=== PATIENT | female | born 1950 | race Caucasian/White ===

== ENCOUNTER 2017-07-30 13:56 | Emergency (ER) | payer BC ==
[~2017-07-30] VITALS: Ht 165.1 cm; Wt 87.2 kg
[2017-07-30 13:58] VITALS: BP 161/85; PULSE 100; RESP 24; TEMP 98.1; O2SAT 95
[2017-07-30] MEDS ORDERED: VENTAER INH (14:10)
[2017-07-30] MEDS ORDERED: ARMO60TA PO (14:10)
[2017-07-30] MEDS ORDERED: SYMB80AE INH (14:10)
[2017-07-30] MEDS ORDERED: methylPREDNISolone SOD SUCC 125 MG/2 ML VIAL IV PUSH ONE (14:15)
[2017-07-30] MEDS ORDERED: SODIUM CHLORIDE 0.9% FLUSH 10 ML FLUSH IVF PRN (14:15)
[2017-07-30] MEDS: RESP: ALBUTEROL 2.5 MG/IPRATROPIUM 0.5 MG NEB (SCH) INH (14:22)
--- NOTE | 2017-07-30 14:23 | PD ---
HPI Chief Complaint: Respiratory Symptoms Time Seen by Provider: 14:10 Travel History International Travel<30 days: No Contact w/Intl Traveler<30days: No Traveled to known affect area: No History of Present Illness HPI 66-year-old female, with history of asthma, presents to the emergency department with complaint of cough, chest tightness, and shortness of breath since Wednesday, with worsening. Reports wheezing. Has tried using her albuterol inhaler with some relief, but symptoms have worsened and her albuterol inhaler is not working. Denies nasal congestion, sore throat, ear pain, fevers. Reports vomiting only secondary to cough. Denies chest pain. Reports mid back pain. Is down here on vacation and staying in a hotel. No known triggers. Symptoms are aggravated when lying down. No known relieving factors. Symptoms are moderate in severity. Rates back pain 02/21. Describes it as an ache. Primary care provider is in [place]. Allergies to benzethonium chloride, benzocaine. History of asthma and hypothyroidism. Has no other medical complaints. No other modifying factors or associated signs and symptoms. PFSH Past Medical History Asthma: Yes Thyroid Disease: Yes ?: Not Past Surgical History Appendectomy: Yes Hysterectomy: Yes Tonsillectomy: Yes Social History Alcohol Use: No Tobacco Use: No Substance Use: No Allergies-Medications (Allergen,Severity, Reaction): Coded Allergies: benzethonium chloride (Verified Allergy, Severe, FACIAL SWELLING, 07/30/17) benzocaine (Verified Allergy, Severe, FACIAL SWELLING, 07/30/17) Reported Meds & Prescriptions Reported Meds & Active Scripts Active Reported Ventolin Hfa 18 GM Inh (Albuterol Sulfate) 90 Mcg/Act Aer 1 Puff INH Q4H PRN Symbicort Inh (Budesonide/Formoterol Fumarate) 80-4.5 Mcg/Act Aero 1 Puff INH Q12HR [place] Thyroid (Thyroid) 60 Mg Tab 60 Mg PO DAILY Review of Systems Except as stated in HPI: all other systems reviewed are Neg Physical Exam Narrative GENERAL: Well-nourished, well-developed female patient, in no acute distress; afebrile, nontoxic-appearing SKIN: Warm and dry. HEAD: Atraumatic. Normocephalic. EYES: Pupils equal and round. No scleral icterus. No injection or drainage. ENT: Mucosa pink and moist. Airway patent. EARS: Bilateral pinnae and external canals appear within normal limits. NECK: Trachea midline. No lymphadenopathy. CARDIOVASCULAR: Regular rate and rhythm. No murmur appreciated. RESPIRATORY: No accessory muscle use. Lungs with Wheezing throughout to auscultation. Breath sounds equal bilaterally. No retractions or tachypnea. Audible wheezing noted. GASTROINTESTINAL: Rounded. MUSCULOSKELETAL: No obvious deformities. No clubbing. No cyanosis. No edema. NEUROLOGICAL: Awake and alert. Oriented 3. No obvious cranial nerve deficits. Motor grossly within normal limits. Normal speech. Moves all extremities. 5/5 strength to all extremities. PSYCHIATRIC: Appropriate mood and affect; insight and judgment normal. Data Data Last Documented VS Vital Signs Date Time Temp Pulse Resp B/P (MAP) Pulse Ox O2 Delivery O2 Flow Rate FiO2 07/30/17 15:05 98.1 97 20 121/60 (80) 96 Orders Orders Chest, Single Ap (07/30/17 14:09) Ecg Monitoring (07/30/17 14:09) Iv Access Insert/Monitor (07/30/17 14:09) Oximetry (07/30/17 14:09) Oxygen Administration (07/30/17 14:09) Methylprednisolone So Succ Inj (Solumedr (07/30/17 14:15) Albuterol-Ipratropium Neb (Duoneb Neb) (07/30/17 14:15) Sodium Chloride 0.9% Flush (Ns Flush) (07/30/17 14:15) Ketorolac Inj (Toradol Inj) (07/30/17 14:30) MDM Medical Decision Making Medical Screen Exam Complete: Yes Emergency Medical Condition: Yes Medical Record Reviewed: Yes Differential Diagnosis Asthma exacerbation, pneumonia, bronchitis Narrative Course 66-year-old female with history of asthma with asthma exacerbation. Patient has wheezing throughout on auscultation of the lung field. Audible wheezing. Mild tachypnea with respiratory rate in the low 20s. Oxygen saturation 95% on room air. Chest x-ray, DuoNeb 3, Solu-Medrol, Toradol ordered. 1420: Dr. Ray evaluated the patient and agrees with my plan of care. 1534: Chest X-ray with no acute disease. Dr. Ray agrees with discharge. Patient feels better on reevaluation. She is without audible wheezing. Lung sounds with minimal wheezing on auscultation, but much improvement. Patient has no retractions or tachypnea. Oxygen saturation is 96-97% on room air. Patient feels comfortable with discharge. Patient requesting Deltasone to be prescribed at 20 mg daily for 7 days; she says this works best for her from past exacerbations. Deltasone prescribed for home. Patient has Ventolin inhaler and does not need a refill. Instructed patient to follow up with primary care provider. Patient verbalizes understanding and agreement with treatment plan. Patient is medically cleared and stable for discharge. Discussed reasons to return to the emergency department. Patient agrees with treatment plan. The patients vital signs are stable and the patient is stable for outpatient follow-up and treatment. Patient discharged home, stable and in no acute distress. Diagnosis Primary Impression: Asthma exacerbation Qualified Codes: J45.901 - Unspecified asthma with (acute) exacerbation Referrals: Primary Care Physician Patient Instructions: Asthma (ED), General Instructions Additional Instructions: Use albuterol inhaler as needed for shortness of breath and/or wheezing Take oral steroids as prescribed and complete full course Avoid asthma triggers such as smoking cigarettes, second hand smoke, dust, known allergens Follow-up with primary care provider Return to emergency department immediately with worsening of symptoms Med/Other Pt SpecificInfo: Prescription(s) given Scripts Prednisone (Deltasone) 20 Mg Tab 20 MG PO DAILY for 7 Days, #7 TAB 0 Refills Prov: Kay Longoria 07/30/17 Disposition: 01 DISCHARGE HOME Condition: Stable Kay Longoria Jul 30, 2017 14:23
[2017-07-30] MEDS ORDERED: KETOROLAC TROMETHAMINE 30 MG/ML (IVP) VIAL IV PUSH ONE (14:30)
--- NOTE | 2017-07-30 14:41 | RADRPT ---
EXAM DATE/TIME: 07/30/2017 14:19 [facility] COMPARISON: No previous studies available for comparison. INDICATIONS : Short of breath wheezing. MEDICAL HISTORY : Asthma. Thyroid disease. SURGICAL HISTORY : Tonsillectomy. Appendectomy. Hysterectomy. ENCOUNTER: Initial ACUITY: 3 days PAIN SCORE: 4/10 LOCATION: chest FINDINGS: A single view of the chest demonstrates the lungs to be symmetrically aerated without evidence of mas s, infiltrate or effusion. The cardiomediastinal contours are unremarkable. Osseous structures are intact. CONCLUSION: No acute disease. Pablo Sexton MD FACR on July 30, 2017 at 14:40 Board Certified Radiologist. This report was verified electronically.
--- NOTE | 2017-07-30 15:04 | PD ---
Physical Exam Date Seen by Provider: Jul 30, 2017 Narrative Patient presents with wheezing. Data Data Last Documented VS Vital Signs Date Time Temp Pulse Resp B/P (MAP) Pulse Ox O2 Delivery O2 Flow Rate FiO2 07/30/17 13:58 98.1 100 24 161/85 (110) 95 Orders Orders Chest, Single Ap (07/30/17 14:09) Ecg Monitoring (07/30/17 14:09) Iv Access Insert/Monitor (07/30/17 14:09) Oximetry (07/30/17 14:09) Oxygen Administration (07/30/17 14:09) Methylprednisolone So Succ Inj (Solumedr (07/30/17 14:15) Albuterol-Ipratropium Neb (Duoneb Neb) (07/30/17 14:15) Sodium Chloride 0.9% Flush (Ns Flush) (07/30/17 14:15) Ketorolac Inj (Toradol Inj) (07/30/17 14:30) MDM Supervised Visit with IVÁN: Yes Narrative Course I, Dr. Ray, have reviewed the advance practice practitioner's documentation and am in agreement, met with the patient face to face, made the diagnosis, and the medical decision making was done by me. *My assessment and Findings: Patient presents with the chief complaint of wheezing. She has audible wheezing and diffuse I&E wheezing with decreased air movement throughout. She has been treated with nebs and Solu-Medrol. She no longer has audible wheezing. She no longer has inspiratory wheezing. Air movement is improved. She continues to have expiratory wheezing. Please see Kay Longoria ME[employer] PICK[employer]ER's note for results of laboratory and radiographic evaluation, ED course, final diagnosis and disposition Gaby Ray MD Jul 30, 2017 15:04
[2017-07-30 15:05] VITALS: BP 121/60; PULSE 97; RESP 20; TEMP 98.1; O2SAT 96
[2017-07-30] MEDS ORDERED: PRED-503 PO (15:37)
== END 2017-07-30 15:50 | disposition home or self-care (01) ==
LOC: PHEFT 13:56
DX: J45.901 Unspecified asthma with (acute) exacerbation (principal); E07.9 Disorder of thyroid, unspecified
CPT/HCPCS: 71045; 94640; 94664; 96374; 96375; 99284; J1885; J2930